=== PATIENT | male | born 1980 | race Caucasian/White ===

== ENCOUNTER 2018-04-02 08:26 | Emergency (ER) | payer MEDICAID, SELFPAY ==
[2018-04-02 08:27] VITALS: BP 132/71; PULSE 118; RESP 16; TEMP 36.7; O2SAT 95; BMI 31.0
--- NOTE | 2018-04-02 08:46 | ED.VISSUMM ---
- ER Visit Summary Date of Service: 04/02/18 Chief Complaint: Fever History of Present Illness: The patient is a 38 M who states that his child had a fever last week. On Monday night the patient began to have body aches and feel feverish. Monday T-max of 103. He states that he has developed a cough today. He notes a sore throat. He feels generalized myalgias. He has been trying to orally hydrate but states that his urine is quite dark. He notes urinary frequency but attributes that to his blood sugars being elevated. Cough is nonproductive. He has been using Tylenol as well as some NyQuil to help with fever. Physical Examination: Afebrile noted tachycardia Gen: Well-nourished well-developed Head: Normocephalic atraumatic Eyes: Perrl EOMI ENT: TMs clear no rhinorrhea moist mucous membranes oral pharyngeal erythema Neck: Supple anterior lymphadenopathy no JVD nontender CVS: Regular rate tachycardia no murmurs normal S1-S2 Respiratory: No distress clear to auscultation bilaterally chest nontender Abdomen: Soft nontender nondistended normal bowel sounds no masses Back: Nontender Extremity: Nontender no edema Skin: Normal color no rash Neuro: alert orientated ?3 CN II-XII intact normal strength sensation reflexes gait cerebellar Psych: Normal affect normal mood Test Results: Chest x-ray was obtained demonstrates a developing right middle lobe infiltrate. Emergency Department Course and Treatment: Patient received a liter of IV fluids and Toradol. With his chest x-ray demonstrating a developing right middle lobe infiltrate this would coincide with his developing cough and febrile illness. He is a diabetic and therefore has a comorbidity and we will cover his pneumonia with Augmentin plus azithromycin. I will write for ibuprofen for fever. Return if worsening or concerns. Impression: 1. Pneumonia This note was generated with [employer] dictation software. It may contain incorrect words, spelling, and punctuation that were not noted in review of the chart prior to signing ED Disposition - Plan for ED Patient: Disposition: Home or Assisted Living Chief Complaint: Fever Instructions: ED Pneumonia Adult Prescriptions: Amox/Clavulanate Tablet [Augmentin Tablet] 875 mg PO Q12H #20 tab Azithromycin [Zithromax Z-Bernabe] 250 mg PO UD #1 box Ibuprofen [Motrin] 800 mg PO TID PRN PRN #20 tab PRN Reason: Fever Additional Instructions: Continue to orally hydrate. Follow-up with primary care physician if not improving or return if worsening
[2018-04-02] MEDS: Ketorolac 30 MG/ML Syringe IV (08:56)
[2018-04-02] MEDS: 0.9% Normal Saline 1,000 ML 1000 ML IV (08:56)
[2018-04-02] MEDS: Acetaminophen 500 MG Tablet 1000 MG PO (10:18)
[2018-04-02 10:19] VITALS: TEMP 37.8
== END 2018-04-02 10:20 | disposition home or self-care (01) ==
PROVIDERS: Emergency Provider Emergency Medicine
DX: J18.9 Pneumonia, unspecified organism (principal); E11.9 Type 2 diabetes mellitus without complications; Z79.84 Long term (current) use of oral hypoglycemic drugs
CPT/HCPCS: 71046; 87880; 96361; 96374; 99283; J7030; A4216

== ENCOUNTER 2019-07-11 11:02 | Emergency (ER) | payer MEDICAID, SELFPAY ==
[2019-07-11 11:03] VITALS: BP 127/81; PULSE 95; RESP 18; TEMP 37; O2SAT 95; BMI 30.1
[2019-07-11 11:05] VITALS: BP 127/81; PULSE 95; RESP 18; TEMP 37; O2SAT 95; BMI 30.1
--- NOTE | 2019-07-11 11:36 | ED.DCSUM_ITS ---
- ER Visit Summary Date of Service: 07/11/19 Chief Complaint: Cough History of Present Illness: The patient is a 39 M presenting with cough, congestion. Patient states this has been ongoing for the past 3 weeks. He started having a fever 3 days ago. Temperature max 102.1. He took Tylenol this morning. He states his children are also sick with similar complaints. He did receive a flu shot this year. He denies chest pain. Cough has been productive. Denies other complaints. Physical Examination: Vitals are stable. Patient is afebrile. Alert no acute distress. HEENT exam is unremarkable. Pharynx is normal. Neck is supple. No meningismus Lungs are clear and equal bilaterally. Heart is regular rate and rhythm. Abdomen is soft nontender nondistended. Extremities are unremarkable. Skin is warm and dry. No focal neurologic deficit. Remainder of exam is unremarkable. Emergency Department Course and Treatment: Patient was given DuoNeb aerosol. Chest x-ray shows no acute process. Influenza negative. On reevaluation, patient is resting comfortably. He is given an albuterol MDI and prescription for Tessalon Perles. Advised to follow-up with Dr. Nunez reception centre manager for no doctor. Advised return to ED for worsening complaints. Disposition: Discharge home Impression: URI This note was generated with [employer] dictation software. It may contain incorrect words, spelling, and punctuation that were not noted in review of the chart prior to signing ED Disposition - Plan for ED Patient: Instructions: BRONCHITIS, No Antibiotic (Adult) Prescriptions: Benzonatate [Tessalon Perle] 200 mg PO TID PRN PRN #20 cap PRN Reason: Cough Prescription Printed Referrals: Neeraj Nunez MD [NON-STAFF] - Care Physician,No Primary [Primary Care Provider] -
--- NOTE | 2019-07-11 11:45 | RAD_ITS ---
STUDY: X-RAY CHEST REASON FOR EXAM: Male, 39 years old. Shortness of breath. Cough. TECHNIQUE: PA and lateral views of the chest. COMPARISON: April 02, 2018. FINDINGS: Cardiac silhouette unremarkable. Pulmonary vascularity unremarkable. Aorta unremarkable. No focal patchy airspace opacities. No pleural effusions. Slightly coarse lung markings. Upper abdomen unremarkable. Osseous structures intact. No pneumothorax. RAD/Chest PA and Lateral IMPRESSION: No acute cardiopulmonary findings Electronically Signed: Cristian Lang DO at 11:58 EST Tel , Service support ,
[2019-07-11 12:05] VITALS: PULSE 88; RESP 20; O2SAT 96
[2019-07-11] MEDS: Ipratropium/Albuterol Sulfate 3 ML AMPUL.NEB INHALATION (12:05)
[2019-07-11 13:02] VITALS: BP 105/78; PULSE 90; RESP 16; TEMP 36.5; O2SAT 94
--- NOTE | 2019-07-11 13:23 | ED.DEP ---
ED Disposition - Plan for ED Patient: Instructions: BRONCHITIS, No Antibiotic (Adult) Prescriptions: Benzonatate [Tessalon Perle] 200 mg PO TID PRN PRN #20 capsule PRN Reason: Cough Referrals: Care Physician,No Primary [Primary Care Provider] - Neeraj Nunez MD [NON-STAFF] -
[2019-07-11 14:07] VITALS: BP 106/75; PULSE 91; RESP 16; O2SAT 96
== END 2019-07-11 14:10 | disposition home or self-care (01) ==
PROVIDERS: Emergency Provider Emergency Medicine
DX: J06.9 Acute upper respiratory infection, unspecified (principal); E11.9 Type 2 diabetes mellitus without complications; I10 Essential (primary) hypertension; Z79.84 Long term (current) use of oral hypoglycemic drugs; Z79.899 Other long term (current) drug therapy
CPT/HCPCS: 71046; 87804; 94640; 99251; 99282; G0463